=== PATIENT | male | born 1950 | race Caucasian/White ===

== ENCOUNTER 2019-01-01 10:52 | Emergency (ER) | payer MEDICARE, SELFPAY ==
[2019-01-01 10:54] VITALS: BP 125/67; PULSE 81; RESP 17; TEMP 37.3; O2SAT 92; BMI 35.7
--- NOTE | 2019-01-01 11:36 | US_ITS ---
STUDY: SCROTUM ULTRASOUND REASON FOR EXAM: Male, 68 years old. 2 day history of bilateral testicular pain. TECHNIQUE: Ultrasound evaluation of the scrotum was performed with color Doppler and static hamm-scale imaging. COMPARISON: None. FINDINGS: RIGHT TESTICLE INTRATESTICULAR: There is a normal size of the right testicle. The right testicle measures 4.4 cm x 2.7 cm x 2.2 cm. There is a homogenous echotexture. There is normal arterial and normal venous vascularity. There is no demonstrated right testicular mass or cyst. EXTRATESTICULAR: The epididymis is normal in size. The epididymis head measures 1 cm x 1.1 cm x 0.9 cm. There is normal vascularity of the epididymis. There is no demonstrated epididymal cystic structure. There is a small hydrocele. There is no demonstrated varicocele. There is no demonstrated extratesticular mass or cyst. LEFT TESTICLE INTRATESTICULAR: There is a normal size of the left testicle. The left testicle measures 3.8 cm x 2.5 signed by 2.4 cm. There is a homogenous echotexture. There is normal arterial and normal venous vascularity. There is no demonstrated left testicular mass or cyst. EXTRATESTICULAR: The epididymis is normal in size. The epididymis head measures 1.1 cm x 1.8 cm x 1.0 cm. There is increased (hyperemic) vascularity of the epididymis. There is a well-defined cystic structure within the epididymis, without internal echoes, consistent with an epididymal cyst. It measures 3 mm x 5 mm x 3 mm. There is a moderate size hydrocele. There is no demonstrated varicocele. There is no demonstrated extratesticular mass or cyst. US/Testicular with Arterial Flow IMPRESSION: Bilateral hydroceles left greater than right. Increased vascularity of the left epididymis. Mild enlargement. Epididymitis should be ruled out. Electronically Signed: Charles De La Cruz, at 13:16 EDT , Service support ,
[2019-01-01 11:59] LABS: Absolute Lymphocyte Count 0.98 X10^3/uL (0.83-4.51); Absolute Neutrophil Count 7.7 X10^3/uL (2.0-7.7); Basophil# 0.01 X10^3/uL; Basophil% 0.1 % (0-1); Eosinophil# 0.02 X10^3/uL; Eosinophils% 0.2 % (0-5); Hematocrit 36.9 % (40-54); Hemoglobin 11.4 g/dL (13.0-16.5); Lymphocyte # 0.98 X10^3/ul (4.0); Lymphocyte % 10.2 % (19-41); Mean Corp Hgb Conc 30.9 g/dL (32-36); Mean Corpuscular Hgb 29.2 pg (27.0-32.0); Mean Corpuscular Volume 94.6 fL (80-94); Mean Platelet Vol. 10.8 fl (6.2-12.0); Monocyte# 0.77 X10^3/uL; NRBC Flagged by Analyzer 0 % (0-5); Neutrophil # 7.68 X10^3/uL (2.7-7.7); Neutrophil % 80.1 % (47-70); Platelet Count 151 K/mm3 (150-450); RBC Distribution Width CV 14.5 % (11.6-14.6); RBC Distribution Width SD 50.2 fl (35.1-43.9); White Blood Count 9.6 K/mm3 (4.4-11.0)
[2019-01-01 12:12] LABS: Anion Gap 4 (5-15); BUN 19 mg/dL (7-18); BUN/Creat Ratio 12.3 RATIO (10-20); Calcium,Total 8.4 mg/dL (8.5-10.1); Chloride 105 mmol/L (98-107); Creatinine, Serum 1.55 mg/dL (0.70-1.30); EST Glomerular Filtration Rate 48 mL/min (>60); Est Glom Filt Rate - Afr Amer 58 mL/min (>60); Estimated Creatinine Clearance 51.46 ml/min; Glucose 88 mg/dL (74-106); Sodium Level 136 mmol/L (136-145)
--- NOTE | 2019-01-01 13:02 | ED.VISSUMM ---
- ER Visit Summary Date of Service: 01/01/19 Chief Complaint: Urinary tract infection and left testicular swelling History of Present Illness: The patient is a 68 M who presents with urinary tract infection left testicular swelling that has been getting worse over the past 2 days. Patient describes the pain as burning and is worse with urination. Patient states the pain is worse in his left testicle. States the pain is worse when he sits down. Patient states he recently completed an antibiotic for an infection in his arm. Patient had recent open reduction internal fixation for a right arm fracture. Patient admits to some subjective fevers and sweats. Patient admits to urinary frequency. Physical Examination: Vital signs are stable. Patient is afebrile. Patient is in no acute distress. Oral mucosa is pink and moist. Oropharynx is clear. Neck is supple. Trachea is midline. There is no JVD noted. Heart with regular rate and rhythm. Lungs are clear and equal bilaterally. Abdomen is soft. Bowel sounds are normal. There is no tenderness. Cranial nerves II through XII are intact. There are no focal motor or sensory deficits noted. Genitourinary exam revealed tenderness and edema of the left testicle. It is in a vertical lie. The epididymis is posterior. Test Results: CBC was normal. Basic metabolic profile shows slightly elevated creatinine of 1.55 BUN of 19. Urinalysis showed leukocyte esterase of 500, positive nitrites, occult blood of 250, 50-100 white blood cells, 25-50 red blood cells, and 2+ bacteria. Ultrasound of the testicle was obtained. There is increased vascularity of the left epididymis. Emergency Department Course and Treatment: Patient was given a prescription for Cipro. Patient was instructed to follow-up with his primary care physician when he gets home. [place] Patient and family understand and are agreeable with the plan. All questions were answered. Disposition: Discharge home Impression: 1. Urinary tract infection 2. Left epididymitis This note was generated with [employer] dictation software. It may contain incorrect words, spelling, and punctuation that were not noted in review of the chart prior to signing ED Disposition - Plan for ED Patient: Disposition: Home or Assisted Living Diagnosis: Urinary tract infection, Left epididymitis Instructions: Epididymitis, Bladder Infection, Male (Adult) Prescriptions: Ciprofloxacin [Cipro] 500 mg PO BID #20 tab Prescription Printed Referrals: [facility] Doctor,Out of [Primary Care Provider] - 5-7 Days
[2019-01-01 13:39] VITALS: BP 140/79
[2019-01-01 13:40] LABS: Mucous, Urine 0 SEEN /hpf (<or=2+)
[2019-01-01 13:45] LABS: Color, Urine Yellow (Yellow); Glucose, Dipstick Normal (Normal); Ketone-Dipstick 5 mg/dl (Negative); Leukocyte Esterase-Dipstick 500 /ul (Negative); Nitrite-Dipstick Positive (Negative); Occult Blood-Urine 250 /ul (Negative); Protein-Dipstick 30 mg/dl (Negative); Urine Bilirubin Dipstick Negative (Negative); Urine Clarity Sl. Cloudy (Clear); Urine Urobilinogen Normal (Normal)
[2019-01-01 13:51] LABS: Bacteria 2+ /hpf (None Seen); Red Blood Cells-Urine 25-50 SEEN /hpf (0-5); Squamous Epithelial Cells - UA 0-5 SEEN /hpf (0-5); White Blood Cells 50-100 SEEN /hpf (0-5)
[2019-01-01 14:17] VITALS: BP 140/79
== END 2019-01-01 14:35 | disposition home or self-care (01) ==
PROVIDERS: Emergency Provider Emergency Medicine
DX: N39.0 Urinary tract infection, site not specified (principal); N45.1 Epididymitis; R51 Headache; M54.9 Dorsalgia, unspecified
CPT/HCPCS: 76870; 80048; 81001; 85025; 93976; 99283; A4216